=== PATIENT | female | born 1985 | race African-American/Black ===

== ENCOUNTER 2022-09-10 10:43 | Emergency (ER) | payer OTHER ==
[2022-09-10 11:46] VITALS: BP 155/105; PULSE 105; RESP 20; TEMP 97.6
--- NOTE | 2022-09-10 12:31 | ED ---
Recheck HPI - General Chief Complaint: Extremity Problem,Nontraumatic Stated Complaint: med refill Time Seen by Provider: 09/10/22 11:45 Source: patient, EMS, RN notes reviewed Mode of arrival: EMS Limitations: no limitations - History of Present Illness Initial Comments: This is a 37-year-old female who presents to the emergency department for medication refills. Initially, it had been noted that she had concerns of ankle pain and a cough. However, she was at [facility] prior to coming here and had those problems addressed. She requested medication refills there, however she states that they were sent to the wrong pharmacy, which she was unaware of until after she left. She presents here to have her medications sent to the correct pharmacy. Requested medication includes Albuterol, Ativan, Spiriva, Dongola, Cogentin, Trazadone, Latuda, and Mucinex cough syrup. Denies any fevers, chills, sore throat, dyspnea, chest pain, palpitations, abdominal pain, nausea, vomiting, diarrhea, back pain, or headaches. MD Complaint: medication refill request - Related Data Previous Rx's Medication Instructions Recorded Albuterol Sulfate [Albuterol 1 puff PO Q4-6H #8.5 gm 09/10/22 Sulfate Hfa] Benztropine Mesylate [Cogentin] 1 mg PO BID #10 tablet 09/10/22 Guaifen/Dextromethorphan/PE 20 ml PO Q4H PRN #180 ml 09/10/22 [Mucinex Fast-Max Congest-Cough] HYDROcodone/APAP 5-325MG [Dongola 1 tab PO Q8H PRN #9 tab 09/10/22 5-325] LORazepam [Ativan] 1 mg PO BID 3 Days #6 tab 09/10/22 Lurasidone [Latuda] 80 mg PO DAILY #5 tab 09/10/22 Tiotropium 18 Mcg/Puff [Spiriva] 1 puff INHALATION DAILY #90 each 09/10/22 traZODone HCL 150 mg PO HS #5 tablet 09/10/22 Allergies Allergy/AdvReac Type Severity Reaction Status Date / Time egg AdvReac Nausea & Verified 09/10/22 10:54 Vomiting ibuprofen [From Motrin] AdvReac Rash/Hives Verified 09/10/22 10:53 lithium AdvReac Rash/Hives Verified 09/10/22 10:54 quetiapine [From Seroquel] AdvReac Rash/Hives Verified 09/10/22 10:54 Review of Systems ROS Statement: Those systems with pertinent positive or pertinent negative responses have been documented in the HPI. ROS Other: All systems not noted in ROS Statement are negative. Past Medical History Past Medical History: Cancer, Heart Failure, COPD, Diabetes Mellitus Additional Past Surgical History / Comment(s): masectomy, thyroid surgery, L ankle surgery Past Psychological History: Anxiety, PTSD Smoking Status: Current every day smoker Past Alcohol Use History: Occasional Past Drug Use History: Marijuana General Exam Limitations: no limitations General appearance: alert, in no apparent distress Head exam: Present: atraumatic, normocephalic, normal inspection Respiratory exam: Present: normal lung sounds bilaterally. Absent: respiratory distress, wheezes, rales, rhonchi, stridor Cardiovascular Exam: Present: regular rate, normal rhythm, normal heart sounds. Absent: systolic murmur, diastolic murmur, rubs, gallop, clicks Neurological exam: Present: alert, oriented X3, CN II-XII intact Psychiatric exam: Present: normal affect, normal mood Skin exam: Present: warm, dry, intact, normal color. Absent: rash Course Vital Signs 09/10/22 10:50 Temperature 97.6 F Pulse Rate 105 H Respiratory 20 Rate Blood Pressure 155/105 O2 Sat by Pulse 98 Oximetry Medical Decision Making - Medical Decision Making This is a 37-year-old female who presents to the emergency department for medication refills. Was pt. sent in by a medical professional or institution? @ -No Did you speak to anyone other than the patient for history? @ -No Did you review nursing and triage notes? @ -No, patient only needs medication refills, the cough and ankle pain were addressed at [facility]. Were old charts reviewed? @ -No Differential Diagnosis? @ -Not applicable What testing was considered but not performed? (CT, X-rays, U/S, labs)? Why? @ -None What meds were considered but not given? Why? @ -None Did you discuss the management of the patient with other professionals? @ -No Did you reconcile home meds? @ -No Was smoking cessation discussed for >3mins.? @ -No Was critical care preformed (if so, how long)? @ -No Were there social determinants of health that impacted care today? How? (Homelessness, low income, unemployed, alcoholism, drug addiction, transportation, low edu. Level, literacy, decrease access to med. care, [facility], rehab)? @ -Problems with transportation, making it difficult to get to appointments and maintenance of way superintendent her medications. Was there de-escalation of care discussed even if they declined? (Discuss DNR or withdrawal of care, Hospice)? @ -No What co-morbidities impacted this encounter? (DM, HTN, Smoking, COPD, CAD, Cancer, CVA, Hep., AIDS, mental health diagnosis, sleep apnea, morbid obesity)? @ -DM, COPD, mental health diagnosis Was patient admitted / discharged? @ -Discharged. Her requested medication was refilled, including Albuterol, Ativan, Spiriva, Dongola, Cogentin, Trazadone, Latuda, and Mucinex. I was willing to refill these to prevent the patient from going into withdrawals, worsening of mental health symptoms, and to avoid a COPD exacerbation. Advised that the controlled substances can only be refilled for 3 days and she was given a 5 day refill on the other medications. Instructed her to have close follow-up with her primary care provider to avoid needing to come to the emergency department for medication refills. Undiagnosed new problem with uncertain prognosis? @ -None Drug Therapy requiring intensive monitoring for toxicity (Heparin, Nitro, Insulin, Cardizem)? @ -None Were any procedures done? @ -None Diagnosis/symptom? @ -Medication refills Acute, or Chronic, or Acute on Chronic? @ -Acute Uncomplicated (without systemic symptoms) or Complicated (systemic symptoms)? @ -Uncomplicated Side effects of treatment? @ -None Exacerbation, Progression, or Severe Exacerbation] @ -Not applicable Poses a threat to life or bodily function? @ -No Return precautions reviewed in depth, the patient is instructed to return to the emergency department with any new, worsening, or concerning symptoms. Patient verbalized understanding. This case was discussed in detail with the attending ED physician, Dr. Chavis. Presentation, findings, and treatment plan discussed in detail as well. Disposition Clinical Impression: Medication refill Disposition: HOME SELF-CARE Additional Instructions: Return to the emergency department with any new, worsening, or concerning symptoms. Take your medications as prescribed. Follow up with your primary care provider in 1-2 days. Prescriptions: Albuterol Sulfate [Albuterol Sulfate Hfa] 1 puff PO Q4-6H #8.5 gm LORazepam [Ativan] 1 mg PO BID 3 Days #6 tab Benztropine Mesylate [Cogentin] 1 mg PO BID #10 tablet Lurasidone [Latuda] 80 mg PO DAILY #5 tab Guaifen/Dextromethorphan/PE [Mucinex Fast-Max Congest-Cough] 20 ml PO Q4H PRN #180 ml PRN Reason: Cough HYDROcodone/APAP 5-325MG [Dongola 5-325] 1 tab PO Q8H PRN #9 tab PRN Reason: Pain Tiotropium 18 Mcg/Puff [Spiriva] 1 puff INHALATION DAILY #90 each traZODone HCL 150 mg PO HS #5 tablet Is patient prescribed a controlled substance at d/c from ED?: Yes When asked, does pt state using other controlled substances?: Yes If prescribed controlled substance>3 days was MAPS reviewed?: Prescribed <3 Days Referrals: Nonstaff,Physician [Primary Care Provider] - 1-2 days
== END 2022-09-10 12:56 | disposition home or self-care (01) ==
LOC: EC 10:43
DX: Z76.0 Encounter for issue of repeat prescription (principal); F17.200 Nicotine dependence, unspecified, uncomplicated; F12.90 Cannabis use, unspecified, uncomplicated; I50.9 Heart failure, unspecified; E11.9 Type 2 diabetes mellitus without complications; F41.9 Anxiety disorder, unspecified; J44.9 Chronic obstructive pulmonary disease, unspecified; Z91.012 Allergy to eggs; Z88.6 Allergy status to analgesic agent; Z88.8 Allergy status to other drugs, medicaments and biological substances; Z79.899 Other long term (current) drug therapy; Z90.13 Acquired absence of bilateral breasts and nipples
CPT/HCPCS: 99284